=== PATIENT | male | born 1995 | race Caucasian/White ===

== ENCOUNTER 2018-05-31 16:08 | Emergency (ER) | payer OTHER ==
--- NOTE | 2018-05-31 16:27 | EDPHY ---
H & P Time Seen by Provider: 05/31/18 16:16 HPI/ROS: CHIEF COMPLAINT: Back pain, abdominal pain, left tib-fib pain post fall from scrambling HISTORY OF PRESENT ILLNESS: 23-year-old male otherwise healthy, no anticoagulant use arrives via ambulance, not a pre-hospital trauma activation. Patient was scrambling on snowy rock, approximately 20 ft from the ground, slipped and slid on his stomach approximately 10 ft , hit a rock and fell onto his back and slid another few feet. There is no free fall component to his fall. He was able to get himself up and ambulate a few feet before sitting down waiting for rescue personnel. He is complaining of left tib-fib , left ankle pain, left upper quadrant abdominal pain, thoracolumbar back pain. PRIMARY CARE PROVIDER: REVIEW OF SYSTEMS: 10 systems reviewed and negative with the exception of the elements mentioned in the history of present illness PAST MEDICAL/SURGICAL HISTORY: no anticoagulant use, no relevant medical/ surgical history SOCIAL HISTORY: denies alcohol use at time of incident. Visiting from [place], in this area on [place]. PHYSICAL EXAM 1) GENERAL: Well-developed, well-nourished, alert and oriented. Appears to be in no acute distress. Answering questions appropriately. 2) HEAD: Normocephalic, atraumatic 3) HEENT: Pupils equal, round, reactive to light bilaterally. Negative Horners. Nasopharynx, oropharynx, clear. No deformity or angulation of nose. No septal hematoma. No rhinorrhea. No oral trauma. Ears bilaterally with normal tympanic membranes. No hemotympanum. No fluid or blood in the external auditory canal. No raccoon eyes. No Casillas sign. Teeth are normally aligned with no gross malocclusion, TMJ bilaterally nontender, facial bones nontender including the zygomatic arch, maxilla mandible. 4) NECK: Cervical collar is on.Cervical collar is removed while holding inline traction and patient has no complaints of midline cervical pain, no effusion noted, trachea midline, no JVD. He is answering questions appropriately. Cervical spine is clinical cleared at that time 5) LUNGS: Clear to auscultation bilaterally, no wheezes, no rhonchi, no retractions. No obvious signs of trauma. No chest wall pain. No flaring, no grunting. Moving symmetrically. No crepitus. 6) HEART: [Regular rate and rhythm, 7) ABDOMEN: No guarding, no rebound, tender to palpation left upper quadrant, no peritoneal signs, no signs of trauma, no ecchymosis 8) MUSCULOSKELETAL: Left lower extremity: Abrasion to the left pretibial region with associated pain. Soft compartments. Tender to palpation left lateral malleolus. Calcaneus foot nontender. Knee and proximal tibia and fibula nontender. Femur nontender. Bilateral acetabulum nontender including axial loading and range of motion. Otherwise, Moving all extremities, no focal areas of tenderness, no obvious trauma. 9) BACK: Patient log-rolled, unable to fully differentiate true midline versus just lateral of midline thoracolumbar pain. Left paraspinous abrasion to the lower thoracic region. 10) SKIN: No laceration. DIFFERENTIAL DIAGNOSIS: in no particular order including but not limited to to splenic fracture, renal fracture, tibia fracture (Ozzie Dennison) Constitutional: Initial Vital Signs Temperature (C) 37.8 C 05/31/18 16:22 Heart Rate 124 H 05/31/18 16:22 Respiratory Rate 20 05/31/18 16:22 Blood Pressure 140/88 H 05/31/18 16:22 O2 Sat (%) 93 05/31/18 16:22 O2 Delivery Mode Room Air Allergies/Adverse Reactions: No Known Allergies Allergy (Unverified 05/31/18 16:22) Home Medications: Medication Instructions Recorded Albuterol 05/31/18 Hydrocodone/APAP 5/325 [Braman 1 tab PO Q6 PRN #7 tab 05/31/18 5/325 (RX)] Medical Decision Making - Diagnostics Imaging Results: Images reviewed myself (Ozzie Dennison) Procedures: Procedure: Splint A [place] boot splint was applied by ER security systems technician. After application of the splint I returned and re-examined the patient. The splint was adequately immobilizing the joint and distal to the splint the patient's circulation and sensation were intact. Patient shows no signs of compartment syndrome. Was given orthopedic precautions. (Ozzie Dennison) ED Course/Re-evaluation: I took over care of this patient at 5:[address] chest abdomen and pelvis. Possible very small wedge compressions at T11 and T12. Otherwise negative studies. Results were discussed with staff radiologist Dr. Mello Almeida. 6:45 p.m., the patient was re-evaluated, resting comfortably at this time. He is thirsty. He is drinking fluids. Left ankle was placed in a [place] boot secondary to possible torus deformity at the fibular diaphysis. Repeat spinal exam, the patient has no midline tenderness on deep palpation of the thoracic spine and lumbar spine. He does complain of some pain especially with movement involving the sacroiliac joints. I feel this is most likely secondary to sprain. Plan will be to get the patient up and ambulate him and reassess for discharge. 6:55 p.m., the patient is up and ambulatory without difficulty. He feels comfortable going home with his friend. I feel he is safe for discharge. Ibuprofen dosing discussed with him. He declines stronger pain medication. Follow-up and return to emergency department precautions reviewed with him. All of his questions were answered. He was discharged from the emergency department in good condition with his friend who is driving (Savanna Gould) 4:20 p.m.: Patient seen on arrival by myself and Dr. Savanna Gould. Will obtain x-rays of the left tib-fib and left ankle as well as CT imaging of the chest abdomen and pelvis with spinal reconstructions. 5 pm: Care turned over to Dr Gould. CT imaging results pending (Ozzie Dennison) - Data Points Laboratory Results: Laboratory Results 05/31/18 16:29 05/31/18 16:29 Point of Care Test Results: Chemistry 05/31/18 16:20 POC Sodium 139 mEq/L mEq/L (135-145) POC Potassium 3.9 mEq/L mEq/L (3.3-5.0) POC Chloride 99 mEq/L mEq/L (97-110) POC Total CO2 25 mEq/L mEq/L (22-31) POC BUN 13 mg/dL mg/dL (7-23) POC Creatinine 0.9 mg/dL mg/dL (0.7-1.3) POC Glucose 87 mg/dL mg/dL (70-100) ISTAT H&H 05/31/18 16:20 POC Hgb 19.7 gm/dL H gm/dL (13.7-17.5) POC Hct 58 % H % (40-51) Departure - Departure Disposition: Home, Routine, Self-Care Clinical Impression: Injury while rock climbing Closed left ankle fracture Qualifiers: Encounter type: initial encounter Qualified Code(s): S82.892A - Other fracture of left lower leg, initial encounter for closed fracture Condition: Good Instructions: Ankle Fracture (ED) Additional Instructions: Return to the ER immediately if you experience discoloration, have worsening pain, numbness, tingling, or any other symptoms that concern you. If you received x-rays in the emergency department today, be advised, that ligamentous , tendon, muscular, and other non-bony injury cannot be fully ruled out. Try to keep your affected extremity elevated above the level of your chest, and keep cold packs on the affected area, for the next 48 hours. Ibuprofen dosin mg every 6 hours with meals for the next 3 days only. Take only as needed for pain. _ Referrals: Jan Marr MD [Medical Doctor] - 2-3 days, call for appt. Prescriptions: Hydrocodone/APAP 5/325 [Braman 5/325 (RX)] 1 tab PO Q6 PRN #7 tab PRN Reason: Pain, Severe
[2018-05-31 16:42] LABS: PLATELET COUNT 251 10^3/uL (150-400)
[2018-05-31] MEDS ORDERED: IOPAMIDOL (ISOVUE-300) 100 ML BTL ONE (16:55)
[2018-05-31 18:59] VITALS: BP 100/45
== END 2018-05-31 19:07 | disposition home or self-care (01) ==
DX: S82.892A Other fracture of left lower leg, initial encounter for closed fracture (principal); W00.2XXA Other fall from one level to another due to ice and snow, initial encounter; Y93.31 Activity, mountain climbing, rock climbing and wall climbing; Y92.828 Other wilderness area as the place of occurrence of the external cause
CPT/HCPCS: 82435-PO; 82565-PO; 82947-PO; 84132-PO; 84295-PO; 84520-PO; 85014-ER; L4386; Q9967